=== PATIENT | female | born 1965 | race Caucasian/White ===

== ENCOUNTER 2022-02-20 11:04 | Outpatient (REF) | payer BC, SELFPAY ==
--- NOTE | 2022-02-20 09:00 | PAPFT_PTH ---
PATIENT: Lynda Vázquez LOC: [facility]#:[id number] AGE/SX: 56/F ROOM: RE02/20/[address]: Nicole Mayer : 1965 BED: DIS: 02/20/2022 SPEC #: [id number] RECD: 02/20/22 17:49 STATUS: LETTY REMilton #: [id number] JAHAIRA: 02/20/22 09:[address]: Nicole Mayer [facility] Cytology RECD BY: Justina Mckee ENTERED: 02/20/22 17:50 SP TYPE: PAPFT FRED DR: Piyush Warner Tissues: 1 - CX/ENDOCX FOR PAP SMEARS Procedures: PAP THIN PREP/UVM Screening HPV DNA PROBE Comments: [id number]
[2022-02-20 15:59] LABS: Calculated LDL 136 mg/dL (<100); Cholesterol 215 mg/dL (<200); HDL Cholesterol 58 mg/dL (40-60); Triglyceride 108 mg/dL (<150)
== END 2022-02-20 11:05 | disposition home or self-care (01) ==
LOC: NCHCN 11:04
PROVIDERS: PCP Specialist/Technologist Athletic Trainer; Visit Provider Nurse Practitioner Family
DX: Z00.00 Encounter for general adult medical examination without abnormal findings (principal); Z12.4 Encounter for screening for malignant neoplasm of cervix; Z13.220 Encounter for screening for lipoid disorders; Z11.51 Encounter for screening for human papillomavirus (HPV); Z01.419 Encounter for gynecological examination (general) (routine) without abnormal findings
CPT/HCPCS: 80061; 88142; 87624

== ENCOUNTER 2022-06-20 01:45 | Outpatient (CLI) | payer BC, SELFPAY ==
--- NOTE | 2022-06-20 07:56 | DI.MAMMO_ITS ---
Exam(s) MAMMO SCREENING EXAM: MAMMO SCREENING CLINICAL HISTORY: SCREENING, Z12.39 TECHNIQUE: Bilateral full field digital CC and MLO mammographic images were obtained with 3D tomosyn thesis and utilizing computer aided detection (CAD). COMPARISON: Available for comparison. FINDINGS: Masses/Architectural Distortion: None seen. Microcalcifications: No suspicious pleomorphic-type are seen. Skin Thickening/Nipple Retraction: None. IMPRESSION: 1. No significant interval change with no specific features of malignancy noted. 2. Unless there is more urgent need, screening mammography is recommended, as per [place] [employer] guidelines. BI-RADS Category 1 - Negative Breast Density - Category B - Scattered areas of fibroglandular density Breast density category C or D implies that the patient has dense breast tissue. Dense breast tissue is very common and is not abnormal but dense breast tissue can make it harder to find cancer on a ma mmogram. Also, dense breast tissue may increase their breast cancer risk. This information about the result of the mammogram report was provided to the patient to raise their awareness. Use this report when you speak with the patient about their risks for breast cancer, which includes their family hist ory. At that time, you may recommend for more screening tests (Ultrasound or MRI) as they might be us eful based on their risk. A negative radiographic report should not delay biopsy if a dominant or clinically suspicious mass is present. Up to ten percent of cancers are not identified on mammography. A negative report may reinforce clinical impression. Adenosis and dense breasts may obscure an underlying neoplasm. False positive reports average 6 to 10%. Patient will receive a letter notifying them of these results.
== END 2022-06-20 02:05 ==
PROVIDERS: PCP Specialist/Technologist Athletic Trainer; Visit Provider Nurse Practitioner Family
DX: Z12.31 Encounter for screening mammogram for malignant neoplasm of breast (principal)
CPT/HCPCS: 77063; 77067

== ENCOUNTER 2024-05-01 08:32 | Outpatient (REF) | payer BC, SELFPAY ==
--- OUTSIDE RECORDS SUMMARY | 2024-05-01 08:34 | XMS_ITS | Encounter Summary ---
Author Organization [facility] Address [address] [place] [address] Care Team Providers Care Ferryboat Helper Name Role Phone Unavailable Primary Care Provider Unavailabl e Encounter Details Date Type Department Care Team (Late st Contact Info) Description 12/29/2005 Results Only [facility] [place] [facility] [address] [place] [address] Hector Malagon MD [address] [facility] [address] [place] [address] Social History Tobacco Use Types Packs/Day Years Used Date Smoking Tobacco: Never Assessed Comments Unknown Sex and Gender Information Value Date Recorded Sex Assigned at Not on file Legal Sex Female 18:12 EST Gender Identity Not on file Sexual Orientation Not on file documented as of this encounter Plan of Treatment Not on file documented as of this encounter Procedures Procedure Name Priority Date/Time Associated Diagnosis Comments CYTOPATHOLOGY Routine 12/29/2005 0:00 EDT documented in this encounter Results * CYTOPATHOLOGY (12/29/2005 0:00 EDT) Pathology Report: CYTOPATHOLOGY REPORT Reports generated via electronic interface contain original data; however they are lacking the format of the original report. Caution should be taken when reading/interpreti ng unformatted reports. Name: ? MIRA VÁZQUEZ ? Accession #: ? [id number] : ? 1965 (Age: 40) ??F ?Collect Date: ? 12/29/2005 Location: ? [facility] ? Receive Date: ? 01/01/2006 Provider: ?HECTOR MALAGON MD Copy to: ? Specimen/Source: ?ThinPrep Pap Test, Cervix/Endocervix, processed on [employer] Please ThinPrep Imaging System, with manual evaluation Last Menstrual Period: ? 12/09/05 ? SPECIMEN ADEQUACY ? Satisfactory for Evaluation - transformation zone component present GENERAL CATEGORIZATION ? Negative for Intraepithelial Lesion or Malignancy ? Document reviewed and electronically signed by: ? KEI Echevarria(ASCP) ? Report Date: ??01/03/2006 09:39 End of Report [facility] 12/29/2005 01/01/2006 us Hector Malagon MD PATHOLOGY ORDERABLES Final Resu lt [facility] [address] [place] [address] documented in this encounter Visit Diagnoses Not on filedocumented in this encounter
--- OUTSIDE RECORDS SUMMARY | 2024-05-01 08:34 | XMS_ITS | Clinical Summary ---
Author Organization [facility] Address [address] [place] [address] Care Team Providers Care Weld Engineer Name Role Phone Piyush Warner PA-C Primary Care Provider [phone] Social History Tobacco Use Types Packs/Day Years Used Date Smoking Tobacco: Never Assessed Interpersonal Safety Answer Date Record ed Physically Hurt Never 01/11/2020 Verbally Threaten Not on file 01/11/2020 Comments Unknown Sex and Gender Information Value Date Recorded Sex Assigned at Not on file Legal Sex Female 18:12 EST Gender Identity Not on file Sexual Orientation Not on file Plan of Treatment Health Maintenance Due Date Last Done Comments Hepatitis C Screen 1965 COVID-19 Vaccine ( season) 2024 RSV Immunization ( o r 60+ Years) (1 - 1-dose 75+ series) 11/05/2038 Care Teams Weld Engineer Relationship Specialty Start Date End Date Piyush Warner PA-C PCP - General 07/13/17
--- OUTSIDE RECORDS SUMMARY | 2024-05-01 08:34 | XMS_ITS | Encounter Summary ---
Author Organization [facility] Address [address] [place] [address] Care Team Providers Care Rail Engineer Name Role Phone Unavailable Primary Care Provider Unavailabl e Encounter Details Date Type Department Care Team (Late st Contact Info) Description 12/11/2003 Results Only [facility] [place] conversion [address] [place] [address] Hector Malagon MD [address] [facility] [facility] [facility] [address] [place] [address] Social History Tobacco Use Types [...] Priority Date/Time Associated Diagnosis Comments CYTOPATHOLOGY Routine 12/11/2003 0:00 EDT documented in this encounter Results * CYTOPATHOLOGY (12/11/2003 0:00 EDT) Pathology Report: CYTOPATHOLOGY REPORT Reports generated via electronic interface contain original data; however they are lacking the format of the original report. Caution should be taken when reading/interpreti ng unformatted reports. Name: ? MIRA VÁZQUEZ ? Accession #: ? [id number] : ? 1965 (Age: 38) ??F ?Collect Date: ? 12/11/2003 Location: ? [facility] ? Receive Date: ? 12/16/2003 Provider: ?HECTOR MALAGON MD Copy to: ? Specimen/Source: ?ThinPrep Pap Test, Cervix/Endocervix Last Menstrual Period: ? 11/09/2003 Menstrual/Pregnanc y Status: ? Post ? SPECIMEN ADEQUACY ? Satisfactory for Evaluation - transformation zone component present GENERAL CATEGORIZATION ? Negative for Intraepithelial Lesion or Malignancy ? Document reviewed and electronically signed by: ? Imelda Person, CT(ASCP)(IAC) ? Report Date: ??12/22/2003 11:27 End of Report [facility] 12/11/2003 12/16/2003 us Hector Malagon MD PATHOLOGY ORDERABLES Final Resu lt [facility] [address] [place] [address] documented in this encounter Visit Diagnoses Not on filedocumented in this encounter
--- OUTSIDE RECORDS SUMMARY | 2024-05-01 08:34 | XMS_ITS | Encounter Summary ---
Author Organization [facility] Address [address] [place] [address] Care Team Providers Care Silver Spray Worker Name Role Phone Unavailable Primary Care Provider Unavailabl e Encounter Details Date Type Department Care Team (Late st Contact Info) Description 02/21/2000 Results Only [facility] [place] conversion [address] [place] [address] Hector Malagon MD [address] [facility] [address] [place] [address] Social History Tobacco Use Types [...] Priority Date/Time Associated Diagnosis Comments CYTOPATHOLOGY Routine 02/21/2000 0:00 EDT documented in this encounter Results * CYTOPATHOLOGY (02/21/2000 0:00 EDT) Pathology Report: CYTOPATHOLOGY REPORT Reports generated via electronic interface contain original data; however they are lacking the format of the original report. Caution should be taken when reading/interpreti ng unformatted reports. Name: ? MIRA VÁZQUEZ ? Accession #: ? [id number] : ? 1965 (Age: 34) ??F ?Collect Date: ? 02/21/2000 Location: ? [facility] ? Receive Date: ? 02/24/2000 Provider: ?HECTOR MALAGON MD Copy to: ? Specimen/Source: ?Conventional Pap Test, Cervix/Endocervix Last Menstrual Period: ? Menstrual/Pregnanc y Status: ? Other: ? Additional clinical information: amenorrhea ? SPECIMEN ADEQUACY ? Satisfactory for evaluation. GENERAL CATEGORIZATION ? Within Normal Limits ? Document reviewed and electronically signed by: ? KEI Echevarria(ASCP) ? Report Date: ??02/24/2000 13:26 End of Report [facility] 02/21/2000 02/24/2000 us Hector Malagon MD PATHOLOGY ORDERABLES Final Resu lt [facility] [address] [place] [address] documented in this encounter Visit Diagnoses Not on filedocumented in this encounter
--- OUTSIDE RECORDS SUMMARY | 2024-05-01 08:34 | XMS_ITS | Encounter Summary ---
Author Organization [facility] Address [address] [place] [address] Care Team Providers Care Clinical Science Liaison Name Role Phone Unavailable Primary Care Provider Unavailabl e Encounter Details Date Type Department Care Team (Late st Contact Info) Description 02/27/2007 Results Only [facility] [place] [facility] [address] [place] [address] Sindhu Leslie, EZRA Social History Tobacco Use Types Packs/Day Years [...] Priority Date/Time Associated Diagnosis Comments CYTOPATHOLOGY Routine 02/27/2007 0:00 EDT documented in this encounter Results * CYTOPATHOLOGY (02/27/2007 0:00 EDT) Pathology Report: CYTOPATHOLOGY REPORT Reports generated via electronic interface contain original data; however they are lacking the format of the original report. Caution should be taken when reading/interpreti ng unformatted reports. Name: ? MIRA VÁZQUEZ ? Accession #: ? [id number] : ? 1965 (Age: 41) ??F ?Collect Date: ? 02/27/2007 Location: ? [facility] ? Receive Date: ? 02/28/2007 Provider: ?SINDHU LESLIE SECOND TIME WORKER Copy to: ? Specimen/Source: ?ThinPrep Pap Test, Cervix/Endocervix, processed on [employer] ThinPrep Imaging System, with manual evaluation Last Menstrual Period: ? 02/08/07 Other: ? HPVA - HPV testing requested if ASC-US on the current ThinPrep Pap test. ? SPECIMEN ADEQUACY ? Satisfactory for Evaluation - transformation zone component present GENERAL CATEGORIZATION ? Negative for Intraepithelial Lesion or Malignancy ? Document reviewed and electronically signed by: ? KEI Felder(ASCP) ? Report Date: ??03/05/2007 14:28 End of Report [facility] 02/27/2007 02/28/2007 us Sindhu Leslie NP PATHOLOGY ORDERABLES Final Re sult [facility] [address] [place] [address] documented in this encounter Visit Diagnoses Not on filedocumented in this encounter
--- OUTSIDE RECORDS SUMMARY | 2024-05-01 08:34 | XMS_ITS | Encounter Summary ---
Author Organization [facility] Address [address] [place] [address] Care Team Providers Care Banana Room Cutter Name Role Phone Unknown, Provider Primary Care Provider Unava ilable Encounter Details Date Type Department Care Team (Late st Contact Info) Description 04/20/2017 Results Only [facility] [phone] Guadalupe Todd MD [address] [place] [address] [place] [address] Social History Tobacco Use Types Packs/Day Years [...] Procedure Name Priority Date/Time Associated Diagnosis Comments PAP TEST- RESULT ONLY Routine 04/20/2017 0:00 EST documented in this encounter Results * PAP TEST- RESULT ONLY (04/20/2017 0:00 EST) Pathology Report: CYTOPATHOLOGY REPORT Reports generated via electronic interface contain original data; however they are lacking the format of the original report. Caution should be taken when reading/interpreti ng unformatted reports. Name: ? MIRA VÁZQUEZ ? Accession #: ? [id number] ? : ? 1965 (Age: 51) ??F ?Collect Date: ? 04/20/2017 ? Location: ? [facility] ? Receive Date: ? 04/23/2017 ? Provider: GUADALUPE TODD MD Copy to: MANSOOR LEON PAC ? Final Report SPECIMEN ADEQUACY ? Satisfactory for Evaluation - transformation zone component present GENERAL CATEGORIZATION ? Negative for Intraepithelial Lesion or Malignancy ?? Specimen/Source: ??Pap Test, Cervix, ThinPrep Imaging System with manual evaluation Document reviewed and electronically signed by: ? Blanca Estrada, [facility](ASCP) ? Report ??Date: 05/04/2017 10:01 HPV with Pap Test ? Date Ordered: ? 05/04/2017 ? Status: ?? Signed Out ?Date Complete: ? 05/07/2017 ? By: ??System Interface ? Date Reported: ? 05/07/2017 ? Interpretation RESULT: Negative for HPV. No E6 or E7 mRNA is detected from HPV types 16,18,31,33,35, 39,45,51,52,56,58, 59,66, and 68 by antique refinisher mediated amplification. Comments Document reviewed and electronically signed by: ? System Interface ? Report date: 05/07/2017 By the signature above, the attending physician certifies that he/she has personally conducted a gross and/or microscopic examination of the described specimens and rendered or confirmed the above diagnosis. End of Report [facility] 04/20/2017 04/23/2017 us Guadalupe Todd MD PATHOLOGY ORDERABLES Final Resu lt Performing Organization Address City/State/[facility] Co de Phone Number [facility] [address] [place] [address] documented in this encounter Visit Diagnoses Not on filedocumented in this encounter Care Teams Banana Room Cutter Relationship Specialty Start Date End Date Unknown, Provider, PCP - General 04/16/15 07/12/17 documented as of this encounter
--- OUTSIDE RECORDS SUMMARY | 2024-05-01 08:34 | XMS_ITS | Encounter Summary ---
Author Organization [facility] Address [address] [place] [address] Care Team Providers Care Internal Medicine Hospitalist Name Role Phone Unavailable Primary Care Provider Unavailabl e Encounter Details Date Type Department Care Team (Late st Contact Info) Description 12/19/2004 Results Only [facility] [place] conversion [address] [place] [address] Hector Malagon MD [address] [address] [place] [address] Social History Tobacco Use Types [...] Priority Date/Time Associated Diagnosis Comments CYTOPATHOLOGY Routine 12/19/2004 0:00 EDT documented in this encounter Results * CYTOPATHOLOGY (12/19/2004 0:00 EDT) Pathology Report: CYTOPATHOLOGY REPORT Reports generated via electronic interface contain original data; however they are lacking the format of the original report. Caution should be taken when reading/interpreti ng unformatted reports. Name: ? MIRA VÁZQUEZ ? Accession #: ? [id number] : ? 1965 (Age: 39) ??F ?Collect Date: ? 12/19/2004 Location: ? [facility] ? Receive Date: ? 12/21/2004 Provider: ?HECTOR MALAGON MD Copy to: ? Specimen/Source: ?ThinPrep Pap Test, Cervix/Endocervix, processed on [employer] ThinPrep Imaging System, with manual evaluation Last Menstrual Period: ? 11/26/04 ? SPECIMEN ADEQUACY ? Satisfactory for Evaluation - transformation zone component present GENERAL CATEGORIZATION ? Negative for Intraepithelial Lesion or Malignancy ? Document reviewed and electronically signed by: ? KEI Herrera(ASCP) ? Report Date: ??12/29/2004 12:51 End of Report [facility] 12/19/2004 12/21/2004 us Hector Malagon MD PATHOLOGY ORDERABLES Final Resu lt [facility] [address] [place] [address] documented in this encounter Visit Diagnoses Not on filedocumented in this encounter
--- OUTSIDE RECORDS SUMMARY | 2024-05-01 08:34 | XMS_ITS | Referral Summary ---
Author Organization [facility] Address [address] [place] [address] Care Team Providers Care Cloth Tearer Name Role Phone Piyush Warner PA-C Primary Care Provider [phone] Social History Tobacco Use Types Packs/Day Years Used Date Smoking Tobacco: Never Assessed Interpersonal Safety Answer Date Record ed Physically Hurt Never 01/11/2020 Verbally Threaten Not on file 01/11/2020 Comments Unknown Sex and Gender Information Value Date Recorded Sex Assigned at Not on file Legal Sex Female 18:12 EST Gender Identity Not on file Sexual Orientation Not on file Plan of Treatment Not on file Care Teams Cloth Tearer Relationship Specialty Start Date End Date Piyush Warner PA-C PCP - General 07/13/17
--- OUTSIDE RECORDS SUMMARY | 2024-05-01 08:34 | XMS_ITS | Encounter Summary ---
Author Organization [facility] Address [address] [place] [address] Care Team Providers Care Senior Software Development Engineer Name Role Phone Unavailable Primary Care Provider Unavailabl e Encounter Details Date Type Department Care Team (Late st Contact Info) Description 04/22/2008 Before PRISM Converted Visit ([place]) [facility] [place] [facility] [place] conversion [address] [place] [address] Sindhu Leslie, EZRA Social History Tobacco Use [...] Procedure Name Priority Date/Time Associated Diagnosis Comments HPV DETECTION, HIGH RISK TYPES Routine 04/22/2008 15:13 EST CYTOPATHOLOGY Routine 04/22/2008 0:00 EST documented in this encounter Results * HUMAN PAPILLOMA VIRUS DNA TEST (04/22/2008 15:13 EST) Specimen Description Cervix, ThinPrep vial [facility] Result Negative for HPV types 16, 18, 31, 33, 35, 39, 45, 51, 52, 56, 58, 59, and 68. [facility] Report Status Final 05/05/2008 [facility] 04/22/2008 15:1 3 EST 04/28/2008 15:13 EST us Sindhu Leslie NP MICROBIOLOGY - GENERAL ORDERA BLES Final Result [facility] [address] [place] [address] * CYTOPATHOLOGY (04/22/2008 0:00 EST) Pathology Report: CYTOPATHOLOGY REPORT ? Reports generated via electronic interface contain original data; ? however they are lacking the format of the original report. ? Caution should be taken when reading/interpreti ng unformatted reports. ? Name: ? MIRA VÁZQUEZ ? Accession #: ? [id number] ? : ? 1965 (Age: 42) ??F ?Collect Date: ? 04/22/2008 ? Location: ? [facility] ? Receive Date: ? 04/23/2008 ? Provider: ?SINDHU M TYREE JUDGE'S CLERK ? Copy to: ? Specimen/Source: ?Pap Test, Cervix/Endocervix, ThinPrep Imaging System ? with manual evaluation ? Last Menstrual Period: ? 11/2/08 ? Other: ? HPVDX - HPV testing requested regardless of diagnosis on current ThinPrep Pap ?? test. ? SPECIMEN ADEQUACY ? Satisfactory for Evaluation ? - transformation zone component present ? - scant squamous epithelial component secondary to excessive mucus ? GENERAL CATEGORIZATION ? Negative for Intraepithelial Lesion or Malignancy ? Document reviewed and electronically signed by: ? Karyn Huddleston. Jacquelyn, SCT(ASCP) ? Report Date: ??04/28/2008 10:04 ? End of Report ? [facility] 04/22/2008 04/23/2008 us Sindhu Leslie JUDGE'S CLERK PATHOLOGY ORDERABLES Final Re sult [facility] [address] [place] [address] documented in this encounter Visit Diagnoses Not on filedocumented in this encounter
--- OUTSIDE RECORDS SUMMARY | 2024-05-01 08:34 | XMS_ITS | Encounter Summary ---
Author Organization [facility] Address [address] [place] [address] Care Team Providers Care Tetryl Wringer Operator Name Role Phone Piyush Warner PA-C Primary Care Provider [phone] [phone] Encounter Details Date Type Department Care Team (Latest Contact Info) Description 02/22/2022 Lab Requisition [facility] Medicine - [facility] [address] [place] [address] Nicole Mayer, CEPHALOMETRIC TECHNICIAN [address] [facility] [address] [place] [phone] Encounter for general adult medical examination without abnormal findings; Encounter for gynecological examination (general) (routine) without abnormal findings; Encounter for screening for malignant neoplasm of cervix Social History Tobacco Use Types Packs/Day Years [...] Name Priority Date/Time Associated Diagnosis Comments PAP TEST Today 02/20/2022 9:00 EDT Encounter for general adult medical examination without abnormal findings Encounter for gynecological examination (general) (routine) without abnormal findings Encounter for screening for malignant neoplasm of cervix HPV DNA DETECTION WITH GENOTYPING, PCR Today 02/20/2022 9:00 EDT Encounter for general adult medical examination without abnormal findings Encounter for gynecological examination (general) (routine) without abnormal findings Encounter for screening for malignant neoplasm of cervix documented in this encounter Results * HUMAN PAPILLOMAVIRUS (HPV) DETECTION-HIGH RISK TYPES (02/20/2022 9:00 EDT) HPV other High Risk types, PCR Negative Negative 02/27/2022 15:15 EDT [facility] Comment:No E6 or E7 mRNA is detected from HPV types 16,18,31,33,35,39,45,51,52,56,58,59,66, and 68 by cathead operator mediated amplification. Papanicolaou smear specimen (specimen) CERVIX UTERI STRUCTURE / Unknown 02/20/2022 9:00 EDT 02/24/2022 14:43 EDT us Nicole Mayer CEPHALOMETRIC TECHNICIAN MICROBIOLOGY - GENERAL OR DERABLES Final Result [facility] [address] [place] [id number] * PAP TEST (02/20/2022 9:00 EDT) Specimens A. Cervix and/or Endocervix , ThinPrep Imaging System with Manual Evaluation 02/27/2022 15:15 [facility] Specimen Adequacy Satisfactory for Evaluation - assessment of transformation zone component not applicable ( e.g. atrophy, vaginal sample, hysterectomy) 02/27/2022 15:15 T [facility] General Categorization Negative for intraepithelial lesion or malignancy 02/27/2022 15:15 [facility] Attestation . 02/27/2022 15:15 [facility] at 1515 Clinical History See below 02/28/20 15:15 [facility] HPV The result for the Human Papillomavirus (HPV) Detection-High Risk Types is Negative. No E6 or E7 mRNA is detected from HPV types 16,18,31,33,35,39 ,45,51,52,56,58,5 9,66, and 68 by cathead operator mediated amplification.Sayra ting was performed on specimen [id number] and was resulted on 02/27/2022 1513 EDT by SARA, LAB INSTRUMENT RESULTS IN 02/27/2022 15:15 EDT [facility] Performing Lab [facility] 02/27/2022 15:15 EDT [facility] Scanned Images 02/27/2022 15:15 EDT [facility] Papanicolaou smear specimen (specimen) CERVIX UTERI STRUCTURE / Unknown 02/20/2022 9:00 EDT 02/22/2022 15:07 EDT us Nicole Mayer CEPHALOMETRIC TECHNICIAN PATHOLOGY ORDERABLES Iris soto Result [facility] [address] [place] [address] documented in this encounter Visit Diagnoses Diagnosis Encounter for general adult medical examination without abnormal findings Unspecified general medical examination Encounter for gynecological examination (general) (routine) without abnormal findings Encounter for screening for malignant neoplasm of cervix Screening for malignant neoplasm of the cervix documented in this encounter Care Teams Tetryl Wringer Operator Relationship Specialty Start Date End Date Piyush Warner PA-C PCP - General 07/13/17 documented as of this encounter
--- OUTSIDE RECORDS SUMMARY | 2024-05-01 08:34 | XMS_ITS | Encounter Summary ---
Author Organization [facility] Address [address] [place] [address] Care Team Providers Care Flamer Sealer Name Role Phone Unavailable Primary Care Provider Unavailabl e Encounter Details Date Type Department Care Team (Late st Contact Info) Description 06/02/2002 Results Only [facility] [place] conversion [address] [place] [address] Hector Malagon MD [address] [place] [address] Social History Tobacco Use Types [...] Priority Date/Time Associated Diagnosis Comments CYTOPATHOLOGY Routine 06/02/2002 0:00 EST documented in this encounter Results * CYTOPATHOLOGY (06/02/2002 0:00 EST) Pathology Report: CYTOPATHOLOGY REPORT Reports generated via electronic interface contain original data; however they are lacking the format of the original report. Caution should be taken when reading/interpreti ng unformatted reports. Name: ? MIRA VÁZQUEZ ? Accession #: ? [id number] : ? 1965 (Age: 36) ??F ?Collect Date: ? 06/02/2002 Location: ? [facility] ? Receive Date: ? 06/06/2002 Provider: ?HECTOR MALAGON MD Copy to: ? Specimen/Source: ?Conventional Pap Test, Cervix/Endocervix Last Menstrual Period: ? 05/18/02 ? SPECIMEN ADEQUACY ? Satisfactory for Evaluation - transformation zone component present GENERAL CATEGORIZATION ? Negative for Intraepithelial Lesion or Malignancy ? Document reviewed and electronically signed by: ? Imelda Person, CT(ASCP)(IAC) ? Report Date: ??06/10/2002 13:10 End of Report [facility] 06/02/2002 06/06/2002 us Hector Malagon MD PATHOLOGY ORDERABLES Final Resu lt [facility] [address] [place] [address] documented in this encounter Visit Diagnoses Not on filedocumented in this encounter
--- OUTSIDE RECORDS SUMMARY | 2024-05-01 08:34 | XMS_ITS | Encounter Summary ---
Author Organization [facility] Address [address] [place] [address] Care Team Providers Care Field Care Manager Name Role Phone Unknown, Provider Primary Care Provider Unava ilable Encounter Details Date Type Department Care Team (Latest Contact Info) Description 07/09/2017 10:33 EST - 07/09/2017 23:59 EST Hospital Encounter [address] [address] Unknown, ProviderMD Discharge Disposition: Auto Discharge Social History Tobacco Use Types Packs/Day Years Used Date Smoking Tobacco: Never Assessed Comments Unknown Sex and Gender Information Value Date Recorded Sex Assigned at Not on file Legal Sex Female 18:12 EST Gender Identity Not on file Sexual Orientation Not on file documented as of this encounter Discharge Disposition Disposition Code Departure Means Destination Auto Discharge Home documented in this encounter Plan of Treatment Not on file documented as of this encounter Visit Diagnoses Not on filedocumented in this encounter Care Teams Field Care Manager Relationship Specialty Start Date End Date Unknown, ProviderMD PCP - General 04/16/15 07/12/17 documented as of this encounter
--- OUTSIDE RECORDS SUMMARY | 2024-05-01 08:34 | XMS_ITS | Encounter Summary ---
Author Organization [facility] Address [address] [place] [address] Care Team Providers Care Electronics System Mechanic Name Role Phone Unavailable Primary Care Provider Unavailabl e Encounter Details Date Type Department Care Team (Late st Contact Info) Description 05/28/2001 Results Only [facility] [place] conversion [address] [place] [address] Hector Malagon MD [address] [place] [address] Social History Tobacco Use Types [...] Priority Date/Time Associated Diagnosis Comments CYTOPATHOLOGY Routine 05/28/2001 0:00 EST documented in this encounter Results * CYTOPATHOLOGY (05/28/2001 0:00 EST) Pathology Report: CYTOPATHOLOGY REPORT Reports generated via electronic interface contain original data; however they are lacking the format of the original report. Caution should be taken when reading/interpreti ng unformatted reports. Name: ? MIRA VÁZQUEZ ? Accession #: ? [id number] : ? 1965 (Age: 35) ??F ?Collect Date: ? 05/28/2001 Location: ? [facility] ? Receive Date: ? 05/31/2001 Provider: ?HECTOR MALAGON MD Copy to: ? Specimen/Source: ?Conventional Pap Test, Cervix/Endocervix Last Menstrual Period: ? 05/05/01 Menstrual/Pregnanc y Status: ? Regular ? SPECIMEN ADEQUACY ? Satisfactory for evaluation. GENERAL CATEGORIZATION ? Within Normal Limits ? Document reviewed and electronically signed by: ? GWENDOLYN Seay(ASCP) ? Report Date: ??06/06/2001 11:09 End of Report [facility] 05/28/2001 05/31/2001 us Hector Malagon MD PATHOLOGY ORDERABLES Final Resu lt [facility] [address] [place] [address] documented in this encounter Visit Diagnoses Not on filedocumented in this encounter
--- OUTSIDE RECORDS SUMMARY | 2024-05-01 08:34 | XMS_ITS | Encounter Summary ---
Author Organization [facility] Address [address] [place] [address] Care Team Providers Care Air Chief Marshal Name Role Phone Unknown, Provider Primary Care Provider Unava ilable Encounter Details Date Type Department Care Team (Late st Contact Info) Description 07/09/2017 Results Only [facility] [phone] Solange Swanson MD [facility] [facility] [facility] [address] [place], [place] [id number] Social History Tobacco Use Types Packs/Day Years [...] Procedure Name Priority Date/Time Associated Diagnosis Comments SURGICAL PATHOLOGY Routine 07/09/2017 15 :44 EST documented in this encounter Results * SURGICAL PATHOLOGY (07/09/2017 15:44 EST) Pathology Report: SURGICAL PATHOLOGY REPORT Reports generated via electronic interface contain original data; however they are lacking the format of the original report. Caution should be taken when reading/interpret ing unformatted reports. Name: ? MIRA VÁZQUEZ ? Accession #: ? [id number] ? : ? 1965 (Age: 51) ??F ? Collect Date: ? 07/09/2017 ? Location: ? [facility] ? Receive Date: ? 07/09/2017 ? Provider: SOLANGE SWANSON MD Copy to: MANSOOR LEON PAC ? Final Pathologic Diagnosis: RECTUM, POLYP, BIOPSY: - Superficial fragments of hyperplastic colonic mucosa. Document reviewed and electronically signed by: JU RASMUSSEN MD Report ??Date: 07/10/2017 19:46 By the signature above, the attending physician certifies that he/she has personally conducted a gross and/or microscopic examination of the described specimens and rendered or confirmed the above diagnosis. Specimen(s) Received: Rectal polyp Clinical History: Colorectal screening Gross Description: ? Received in formalin labelled with proper patient identification (initials P, M) and rectal polyp is a single pink-rangel tissue fragment (0.2 x 0.2 x 0.2 cm). Submitted intact in 1. LENNOX Tinoco (ASCP) 07/09/2017 3:53 PM End of Report [facility] 07/09/2017 15:4 4 EST 07/09/2017 15:44 EST us Solange Swanson MD PATHOLOGY ORDERABLES Fin al Result [facility] [address] [place] [address] documented in this encounter Visit Diagnoses Not on filedocumented in this encounter Care Teams Air Chief Marshal Relationship Specialty Start Date End Date Unknown, Provider, PCP - General 04/16/15 07/12/17 documented as of this encounter
--- OUTSIDE RECORDS SUMMARY | 2024-05-01 08:34 | XMS_ITS | Encounter Summary ---
Author Organization [facility] Address [address] [place] [address] Care Team Providers Care Auto Accessories Installer Name Role Phone Unavailable Primary Care Provider Unavailabl e Encounter Details Date Type Department Care Team (Late st Contact Info) Description 02/04/[address] [facility] [place] [address] [place] [phone] Sindhu Leslie, EZRA Social History Tobacco Use [...] Diagnosis Comments PAP TEST- RESULT ONLY Routine 02/04/2014 0:00 EDT documented in this encounter Results * PAP TEST- RESULT ONLY (02/04/2014 0:00 EDT) Pathology Report: CYTOPATHOLOGY REPORT Reports generated via electronic interface contain original data; however they are lacking the format of the original report. Caution should be taken when reading/interpreti ng unformatted reports. Name: ? MIRA VÁZQUEZ ? Accession #: ? [id number] ? : ? 1965 (Age: 48) ??F ?Collect Date: ? 02/04/2014 ? Location: ? [facility] ? Receive Date: ? 02/05/2014 ? Provider: SINDHU LESLIE NP Copy to: SENIA WEISS FAST FOOD SHIFT SUPERVISOR ? Final Report SPECIMEN ADEQUACY ? Satisfactory for Evaluation - transformation zone component present GENERAL CATEGORIZATION ? Negative for Intraepithelial Lesion or Malignancy ?? Last Menstrual Period: 01/2014 Specimen/Source: ??Pap Test, Cervix/Endocervix, ThinPrep Imaging System with manual evaluation Document reviewed and electronically signed by: ? Cindy Lange, CT(ASCP) ? Report ??Date: 02/11/2014 14:56 HPV with Pap Test ? Date Ordered: ? 02/11/2014 ? Status: ?? Signed Out ?Date Complete: ? 02/13/2014 ? By: ??System Interface ? Date Reported: ? 02/13/2014 ? Interpretation RESULT: Negative for HPV. No E6 or E7 mRNA is detected from HPV types 16,18,31,33,35, 39,45,51,52,56,58, 59,66, and 68 by bleach tester mediated amplification. Comments Document reviewed and electronically signed by: ? System Interface ? Report date: 02/13/2014 By the signature above, the attending physician certifies that he/she has personally conducted a gross and/or microscopic examination of the described specimens and rendered or confirmed the above diagnosis. End of Report [facility] 02/04/2014 02/05/2014 us Sindhu Leslie NP PATHOLOGY ORDERABLES Final Re sult [facility] [address] [place] [address] documented in this encounter Visit Diagnoses Not on filedocumented in this encounter
--- OUTSIDE RECORDS SUMMARY | 2024-05-01 08:34 | XMS_ITS | Encounter Summary ---
Author Organization [facility] Address [address] [place] [address] Care Team Providers Care Military Technology Specialist Name Role Phone Unavailable Primary Care Provider Unavailabl e Encounter Details Date Type Department Care Team (Late st Contact Info) Description 11/14/1999 Results Only [facility] conversion [address] [place] [address] Hector Malagon MD [address] [facility] [address] [place] [address] Social History Tobacco Use Types [...] Date/Time Associated Diagnosis Comments SURGICAL PATHOLOGY Routine 11/14/1999 0:00 EDT documented in this encounter Results * SURGICAL PATHOLOGY (11/14/1999 0:00 EDT) Pathology Report: SURGICAL PATHOLOGY REPORT Reports generated via electronic interface contain original data; however they are lacking the format of the original report. Caution should be taken when reading/interpreti ng unformatted reports. Name: ? MIRA VÁZQUEZ ? Accession #: ? [id number] ? : ? 1965 (Age: 34) ??F ? Collect Date: ? 11/14/1999 ? Location: ? [facility] ? Receive Date: ? 11/14/1999 ? Provider: HECTOR MALAGON MD Copy to: JO AMOS MD ? Final Pathologic Diagnosis: ? Endometrium, biopsy: 1. ?Gestational endometrium and decidua. 2. ?No chorionic villi or trophoblastic tissue is identified. ??See comment. Comment: ? This case was discussed by phone with Dr. Malagon on November 15, 1999 at 10 o' clock a.m. ??(Dr. Griffiths)/[facility] Document reviewed and electronically signed by: LAURE DIAZ MD Report ??Date: 11/15/1999 17:16 By the signature above, the attending physician certifies that he/she has personally conducted a gross and/or microscopic examination of the described specimens and rendered or confirmed the above diagnosis. Specimen(s) Received: ? Endometrial bx Clinical History: ? Irreg bleeding, (+) HCG, R/O ectopic, please check for villi Gross Description: ? Received in formalin labelled Hume and endometrium are multiple fragments of red-brown mucinous hemorrhagic tissue which measures 2.0 x 1.5 x 1.0 cm in aggregate and are submitted entirely as (A1) through (A3). ??(Dr. Griffiths)/[facility] End of Report [facility] 11/14/1999 11/14/1999 16: 09 EDT us Hector Malagon MD PATHOLOGY ORDERABLES Final Resu lt [facility] [address] [place] [address] documented in this encounter Visit Diagnoses Not on filedocumented in this encounter
[2024-05-01 15:10] LABS: Bilirubin Negative (Negative); Blood Negative (Negative); Clarity Clear (Clear); Glucose Negative (Negative); Ketones Negative (Negative); Leukocyte Esterase Trace (Negative); Nitrite Negative (Negative); Urobilinogen 0.2 mg/dL (Up to 0.2)
[2024-05-01 15:18] LABS: Bacteria Negative HPF (Negative); C & S Indicated? No; Casts Negative LPF (Negative); Crystals Negative HPF (Negative); Epithelial Cells Rare HPF (Negative); Mucus Negative (Negative); RBC Negative HPF (0-2); WBC 0-2 HPF (0-5)
[2024-05-01 15:22] LABS: ALT 28 U/L (14-59); AST 22 U/L (15-37); Albumin 4.1 g/dL (3.4-5.0); Alkaline Phosphatase 108 U/L (46-116); Anion Gap 7.8 mmol/L (3-11); BUN 16 mg/dL (7-18); Bilirubin, Total 0.37 mg/dL (0.2-1.0); CO2 29.2 mmol/L (21.0-32.0); CREATININE 0.8 mg/dL (0.55-1.02); Calcium 9.6 mg/dL (8.5-10.1); Calculated LDL 123 mg/dL (<100); Chloride 108 mmol/L (98-107); Cholesterol 199 mg/dL (<200); Glucose 99 mg/dL (74-106); HDL Cholesterol 59 mg/dL (40-60); Potassium 4.7 mmol/L (3.5-5.1); Sodium 145 mmol/L (136-145); Total Protein 7.3 g/dL (6.4-8.2); Triglyceride 88 mg/dL (<150)
[2024-05-01 16:25] LABS: COMMENT (LAB VIEW ONLY) < 13.00 mg/dL
== END 2024-05-01 08:33 | disposition home or self-care (01) ==
LOC: NCHCN 08:32
PROVIDERS: PCP Specialist/Technologist Athletic Trainer; Visit Provider Nurse Practitioner Family
DX: I10 Essential (primary) hypertension (principal)
CPT/HCPCS: 80053; 80061; 81003; 81015; 82043; 82570

== ENCOUNTER 2024-07-18 10:13 | Outpatient (CLI) | payer BC, SELFPAY ==
--- NOTE | 2024-07-18 08:43 | DI.RAD_ITS ---
Exam(s) XR KNEE RT 4V AP,LAT,MAGDIEL,PAT EXAM: XR KNEE RT 4V AP,LAT,MAGDIEL,PAT CLINICAL HISTORY: knee pain. TECHNIQUE: 2D digital imaging was performed. Three views. COMPARISON: CR LEFT KNEE 3 VIEW COMPLETE from 05/26/2015 FINDINGS: BONES: No acute fracture is present. No bony destructive lesion is seen. There is mild deformity of the lateral tibial plateau which could be related to an old fracture versus degenerative spurring. JOINTS: There is severe narrowing of the lateral patellofemoral joint. There is prominent spurring a t the lateral aspect of the patellofemoral joint. There is mild narrowing of the lateral femoral tib ial joint however there is prominent periarticular spurring. The medial femoral tibial joint space s hows mild compensatory widening. No joint effusion is seen. SOFT TISSUE: Normal. IMPRESSION: Degenerative changes, most severe at the lateral patellofemoral joint. DATA REPOSITORY: RADIATION DOSE DELIVERED:
== END 2024-07-18 10:14 | disposition home or self-care (01) ==
LOC: DIORS 10:13
PROVIDERS: PCP Nurse Practitioner Family; Visit Provider Physician Assistant
DX: M25.561 Pain in right knee (principal)
CPT/HCPCS: 73564

== ENCOUNTER 2024-08-07 02:05 | Outpatient (CLI) | payer BC, SELFPAY ==
--- NOTE | 2024-08-07 | DI.MRI_ITS ---
Exam(s) MR LOWER JOINT RT WO EXAM: MR LOWER JOINT RT WO CLINICAL HISTORY: PAIN RT KNEE M25.561. TECHNIQUE: Multiplanar multisequence MRI was performed. COMPARISON: CR XR KNEE RT 4V AP,LAT,MAGDIEL,PAT from 07/18/2024 FINDINGS: BONES: There is depression seen in the central lateral tibial plateau. There is mild marrow edema se en in the posterior aspect of the lateral tibial plateau. The marrow edema lies at the posterior asp ect of the depression and posterior to the depression. JOINTS: There is marked thinning of the articular cartilage of the patellofemoral joint. Mild subcho ndral edema is present. There is thinning of the articular cartilage in both the medial lateral femo ral tibial joints, lateral greater than medial. Osteophytes are seen in the lateral femoral tibial j oint. No effusion is present. TENDONS: Extensor mechanism: Unremarkable. Medial retinaculum: Unremarkable. Lateral retinaculum: Unremarkable. Popliteus: Unremarkable. MUSCLES: Unremarkable. MENISCI: The medial meniscus is unremarkable. The body and posterior horn of the lateral meniscus sh ows decrease in size in contains abnormal signal. This may be due to a tear which is likely degenera tive in nature. SOFT TISSUES: Unremarkable. LIGAMENTS: Anterior Cruciate: Unremarkable. Posterior Cruciate: Unremarkable. Medial Collateral:Unremarkable. Lateral Collateral: Unremarkable. OTHER: IMPRESSION: 1. Decreased size and abnormal signal within the body and posterior horn of the lateral meniscus. Th e findings are consistent with a tear which is likely degenerative in nature. 2. Findings of a prior depressed lateral tibial plateau fracture. There is mild marrow signal diesel powerplant mechanic helper ior to the depression which may be more acute. 3. Osteoarthritis of the knee most marked in the lateral femoral tibial joint. 4. No evidence of a ligament tear. DATA REPOSITORY:
== END 2024-08-07 02:25 ==
LOC: DI 02:06
PROVIDERS: PCP Nurse Practitioner Family; Visit Provider Nurse Practitioner Family
DX: M17.11 Unilateral primary osteoarthritis, right knee (principal)
CPT/HCPCS: 73721

== ENCOUNTER 2024-10-24 01:59 | Outpatient (CLI) | payer BC, SELFPAY ==
[2024-10-24 09:28] LABS: HCT 42.7 % (36.0-46.0); MCH 29.5 pg (27.0-33.0); MCHC 32.8 % (32.0-36.0); MCV 90 fL (80-95); MPV 8.8 fL (8.0-11.0); Platelet Count 341 10^3/uL (130-400); RBC 4.74 10^6/uL (3.93-5.22); RDW 12.7 % (11.7-14.6); RDW-SD 42.3 fL; WBC 6.75 10^3/uL (4.4-10.8)
[2024-10-24 09:46] LABS: Anion Gap 6.9 mmol/L (3-11); BUN 19 mg/dL (7-18); CO2 28.1 mmol/L (21.0-32.0); CREATININE 0.9 mg/dL (0.55-1.02); Calcium 9.6 mg/dL (8.5-10.1); Chloride 105 mmol/L (98-107); Estimated GFR 73.19 (mL/min/1.73m2); Glucose 99 mg/dL (74-106); Sodium 140 mmol/L (136-145)
== END 2024-10-24 02:00 | disposition home or self-care (01) ==
PROVIDERS: PCP Nurse Practitioner Family; Visit Provider Student in an Organized Health Care Education/Training Program
DX: M17.11 Unilateral primary osteoarthritis, right knee (principal); Z01.818 Encounter for other preprocedural examination
CPT/HCPCS: 36415; 80048; 85027

== ENCOUNTER 2024-10-24 09:06 | Outpatient (CLI) | payer BC, SELFPAY ==
--- NOTE | 2024-10-24 08:15 | DI.RAD_ITS ---
Exam(s) XR STANDING ALIGNMENT EXAM: XR STANDING ALIGNMENT CLINICAL HISTORY: PRE OP R TKA. TECHNIQUE: 2D digital imaging was performed. COMPARISON: CR LEFT KNEE 3 VIEW COMPLETE from 05/26/2015 CR XR KNEE RT 4V AP,LAT,MAGDIEL,PAT from 07/18/2024 FINDINGS: 3 views There is again noted significant degenerative narrowing of the lateral compartment of the right knee and medial compartment of the opposite-left knee. The appearance of the lateral compartment of the r ight knee is similar to images of July 2024. The medial compartment of the left knee has progres sed to significant narrowing when compared to the unremarkable appearing images the left knee in Dece er 2014, 10 years ago. Lateral compartment of the left knee again exhibits normal height and there is also relatively maintained height of the medial compartment of the right knee. Hips appear unremarkable. Ankles unremarkable. Bone density. No osseous lesions. IMPRESSION: Significant degenerative changes in the medial compartment of the left knee and lateral compartment o f the right knee, as described above. DATA REPOSITORY: RADIATION DOSE DELIVERED:
== END 2024-10-24 09:07 | disposition home or self-care (01) ==
LOC: DIORS 09:06
PROVIDERS: PCP Nurse Practitioner Family; Visit Provider Physician Assistant
DX: M17.11 Unilateral primary osteoarthritis, right knee (principal)
CPT/HCPCS: 99213; 77073

== ENCOUNTER 2024-11-05 09:44 | Day surgery (SDC) | payer BC, SELFPAY ==
--- NOTE | 2024-11-05 07:29 | PDOC.DSDIS_ITS ---
Date of service: 11/05/24 Discharge Plan Disposition Patient Disposition: Home Condition: Good Discharge Details Reason For Visit: R TKR Attending Provider: Maxi Leon Primary Care Provider: Nicole Mayer Home Meds and New Rx's Prescriptions: New acetaminophen 500 mg tablet 1,000 mg PO TID Qty: 90 3RF aspirin 81 mg tablet,delayed release (DR/EC) 81 mg PO BID Qty: 60 0RF celecoxib 200 mg capsule 200 mg PO BID Qty: 60 0RF dexamethasone 4 mg tablet 4 mg PO DAILY Qty: 2 0RF docusate sodium 100 mg capsule 100 mg PO BID PRNQty: 28 0RF pantoprazole 40 mg tablet,delayed release (DR/EC) 40 mg PO DAILY Qty: 14 0RF gabapentin 300 mg capsule 300 mg PO QHS Qty: 14 0RF oxycodone 5 mg tablet 5 mg PO Q4H PRNQty: 18 0RF Continued metoprolol succinate 25 mg tablet extended release 24 hr 25 mg PO DAILY multivitamin [Daily Multi-Vitamin] 1 EACH tablet 1 ea PO DAILY Patient Comments: Patient states she took this roughly one week ago Discharge Instructions Additional Instructions: Total Knee Discharge Instructions Activity: The most important activity is to walk and to work on gentle motion (both flexion and extension). You should try to take short walks a few times a day. It is important that when resting you work on keeping the knee straight. Avoid putting a pillow behind the knee as this will encourage flexion. Work on range of motion exercises as provided by Physical Therapy. - Start outpatient physical therapy within 2 weeks. - You should wear the NICHOLAS hose on both legs for 2 weeks. You may remove these at night. You may also use any compression sock in place of the NICHOLAS hose. - Utilize [employer] to review exercises, see videos on exercises and obtain basic information pertaining to your surgery and your recovery. Dressing: Remove the Devang wrap by 2 days after your surgery and put on the NICHOLAS stocking given to you from the hospital. Keep the surgical dressing (underneath the DEVANG wrap) in place for at least one week. After the first week it may be removed and replaced with light gauze and tape or nothing. The wound and dressing may get wet after 3 days but avoid soaking the dressing or otherwise it will need to be changed. Many people prefer covering the dressing with cling wrap (saran wrap) to minimize it from getting soaked. If it gets wet, just pat dry. If it starts to peel off then it will need to be changed. Medications: - You should take Tylenol and anti-inflammatory Celebrex as your primary pain control medications. If the Celebrex is too expensive or not covered, please call the office for another alternative (Advil/Ibuprofen or Naproxen/Aleve) - You have been prescribed a stronger pain medication Oxycodone for breakthrough pain, take as needed as prescribed. - You have also been prescribed a stomach acid reduction agent Pantoprozole to help reduce stomach acid and reflux. - You have been prescribed Gabapentin to take at night for restlessness and nerve pain. - You will be taking Aspirin 81mg twice a day for DVT prevention unless instructed otherwise. - You have also been prescribed Decadron to take to control post-operative nausea and pain. You will start this tomorrow. - If you have constipation you should take Colace or Miralax (both [id number]). It takes most people 3-4 days to have a bowel movement. Follow-up: 2 weeks If you have any acute concerns or questions, please do not hesitate to contact the office at [phone]. You may contact Dr. Leon with any questions after hours through the hospital at [phone] or on his cell phone at [phone]. Referrals: Maxi Leon MD [ [facility] STAFF PHYSICIAN] - Equipment/Supplies: Walker Activity:: Activity as Tolerated Shower/Bathe:: 72 hours Diet:: As Tolerated Discharge Orders Discharge Orders: Discharge Order (Routine); Ordered 11/05/24 Ordered By: Berhane Cornell DS: Diagnosis Discharge Diagnosis (1) Osteoarthritis of right knee: Status: Acute
[2024-11-05 10:10] VITALS: BP 233/83; PULSE 60; RESP 16; TEMP 36.3; O2SAT 99
[2024-11-05] MEDS: Gabapentin 300 MG CAP PO (10:35)
[2024-11-05] MEDS: Celecoxib 200 MG CAP 400 MG PO (10:35)
[2024-11-05] MEDS: Acetaminophen 500 MG TAB 1000 MG PO (10:36)
[2024-11-05 10:57] VITALS: BP 212/63
[2024-11-05] MEDS: Lactated Ringers 1,000 ML 80 ML IV (10:58)
--- NOTE | 2024-11-05 11:48 | ANES_ITS ---
Date of service: 11/05/24 Time of Service: 11:20 Anesthesia Note Report Anesthesia Note: Met patient in [facility] to discuss elevated blood pressure reading upon presentation for elective surgery. Reviewed historical data in [facility] going back to 07/2024 with elevated readings. Patient reports she took her daily metoprolol dose this am. Discussed with patient varying levels of uncontrolled hypertension readings in the office versus primary care. Patient does not take blood pressure readings at home and is unsure of her average range. Discussed increased anesthetic risks with poorly controlled hypertension. Plan to postpone elective surgery today and reach out to primary care to further evaluate blood pressure control and potentially have a blood pressure readings log to track baseline. Dr. Leon aware with the plan. Reviewed plan with patient and who verbalized understanding.
--- NOTE | 2024-11-05 12:15 | DSU.FORM ---
Surgery cancelled d/t uncontrolled HTN. IV removed. All belongings returned to patient.
--- NOTE | 2024-11-05 14:17 | PT.INNT ---
PT Notes Visit Reasons: R TKR Patient's surgery cancelled per Dr. Leon.
== END 2024-11-05 09:45 | disposition home or self-care (01) ==
LOC: SUR 09:44
PROVIDERS: PCP Nurse Practitioner Family; Visit Provider Student in an Organized Health Care Education/Training Program
DX: Z53.21 Procedure and treatment not carried out due to patient leaving prior to being seen by health care provider (principal); I10 Essential (primary) hypertension

== ENCOUNTER 2024-11-19 06:02 | Day surgery (SDC) | payer BC, SELFPAY ==
[2024-11-19] VITALS (27 sets, daily range): BP systolic 119–195; BP diastolic 55–109; PULSE 52–73; RESP 7–19; TEMP 36.1–36.7; O2SAT 87–100; BMI 35.5
--- NOTE | 2024-11-19 06:30 | ANES.PREOP_ITS ---
General Info Date of Service Date Performed: 11/19/24 Height: 5 ft 4 in Weight: 93.9 kg Body Mass Index (BMI): 35.5 Surgical Procedure: Operation Date: 11/19/24 07:40 Proposed Procedure Side Surgeon p Knee Total Arthroplasty w/OrthAlign Right Maxi Leon MD Meds Allergies and Home Medications Allergies Allergy/AdvReac Type Severity Reaction Status Date / Time penicillin G Allergy Unknown HIVES A Verified 11/19/24 06:25 CHILD Home Medication ?Medication ?Instructions ?Recorded multivitamin (Daily Multi-Vitamin 1 ea PO DAILY 04/20/17 tablet) metoprolol succinate 25 mg 25 mg PO DAILY 07/18/24 tablet,extended release 24 hr amlodipine 2.5 mg tablet 2.5 mg PO DAILY Hypertension 11/18/24 Current Visit Medications: Current Medications Generic Name Dose Route Start Last Admin Trade Name Freq PRN Reason Stop Dose Admin Acetaminophen 1,000 mg 11/19/24 06:00 Acetaminophen 500 Mg Tab PO 11/19/24 23:59 PREOP RIMA Celecoxib 400 mg 11/19/24 06:00 Celecoxib 200 Mg Cap PO 11/19/24 23:59 PREOP RIMA Gabapentin 300 mg 11/19/24 06:00 Gabapentin 300 Mg Cap PO 11/19/24 23:59 PREOP RIMA Ringer's Solution 1,000 mls @ 80 mls/hr 11/19/24 06:00 IV 11/19/24 23:59 INFUSION RIMA Tranexamic Acid/Sodium Chloride 1,000 mg in 100 mls @ 600 mls/hr 11/19/24 06:00 IVPB 11/19/24 23:59 PREOP RIMA Cefazolin Sodium/Dextrose 2 gm in 50 mls @ 100 mls/hr 11/19/24 06:15 Ancef Duplex IVPB 12/19/24 06:14 PREOP RIMA IV Miscellaneous Supplies 1 each 11/19/24 06:00 Iv Access IV 11/19/24 23:59 DIRECTED RIMA Sodium Chloride 0 ml 11/19/24 06:00 Normal Saline Flush 10 Ml Syr IV 11/19/24 23:59 PRN PRN Sodium Chloride 0 ml 11/19/24 06:00 Normal Saline 10 Ml Vial IJ 11/19/24 23:59 DIRECTED PRN Sterile Water 0 ml 11/19/24 06:00 Water,Injection,Sterile 10 Ml Vial IJ 11/19/24 23:59 DIRECTED PRN PFSH Active Problems Active Problems: Problem Status Onset Code Closed fracture of right tibial plateau with malunion Acute S82.141P Osteoarthritis of right knee Acute M17.11 Medical History Medical History HTN (hypertension) Migraine Past history of Surgical History Surgical History , Ectopic 1999 Rx'd section 2000 and 2003 Colonoscopy - MAC (07/09/17) Appendectomy 1977 Tobacco Smoking/Tobacco Use Status: Never Passive smoking exposure: Yes Alcohol Alcohol Intake: current Alcohol intake frequency: holidays/special occasions only Substance Use Substance use: Never Substance use type: does not use Vital Signs and Lab Results Lab Results Blood Type / Crossmatch: 2 No Data to Display Complete Blood Count: 2 White Blood Count 6.75 10^3/uL (4.4-10.8) 10/24/24 09:19 Red Blood Count 4.74 10^6/uL (3.93-5.22) 10/24/24 09:19 Hemoglobin 14.0 g/dL (11.2-15.7) 10/24/24 09:19 Hematocrit 42.7 % (36.0-46.0) 10/24/24 09:19 Platelet Count 341 10^3/uL (130-400) 10/24/24 09:19 Complete Metabolic Panel: 2 Sodium 140 mmol/L (136-145) 10/24/24 09:19 Potassium 4.0 mmol/L (3.5-5.1) 10/24/24 09:19 Chloride 105 mmol/L (98-107) 10/24/24 09:19 Carbon Dioxide 28.1 mmol/L (21.0-32.0) 10/24/24 09:19 BUN 19 mg/dL (7-18) H 10/24/24 09:19 Creatinine 0.9 mg/dL (0.55-1.02) 10/24/24 09:19 Est GFR (CKD-EPI 2020) 73.19 (mL/min/1.73m2) 10/24/24 09:19 Calcium 9.6 mg/dL (8.5-10.1) 10/24/24 09:19 Glucose 99 mg/dL (74-106) 10/24/24 09:19 Liver Function Panel: 2 No Data to Display Coagulation Panel: 2 No Data to Display Cardiac Panel: 2 No Data to Display Arterial Blood Gas: 2 No Data to Display Venous Blood Gas: 2 No Data to Display Pancreas Panel: 2 No Data to Display Thyroid Panel: 2 No Data to Display Infectious Disease: 2 No Data to Display Blood Cultures: 2 No Data to Display Toxicology Panel: 2 No Data to Display Anesthesia Assessment and Plan Anesthesia History Personal History: PONV (with prior ) Family History: No Family History of Anesthesia Complications Exercise Tolerance Exercise Tolerance: Metabolic Equivalents>4 Pertinent Negatives Pertinent Negatives: No Symptoms of GERD, No Major Cardiovascular Symptoms or Complaints, No Major Pulmonary Symptoms or Complaints and No History of CVA/TIA Cardiac & Pulmonary Exam Cardiac Exam: Normal S1/S2 Heart Sounds Pulmonary Exam: Clear Bilateral Breath Sounds and No cough or Cold Implantable Cardiac Device Does patient have a Pacemaker or an ICD?: No Airway Exam Known Difficult Airway: No Mallampati Class: 2 Mouth Opening: Normal (> 3cm) Thyromental Distance: Greater than 3 cm Neck Range of Motion: Full ROM Neck Circumference: Normal Teeth Condition: Normal Dentition Tooth Numberin 1. missing crown ASA Classification ASA Score: ASA 2 Emergency Case?: No NPO Status NPO Status: NPO Clears >2 hours, Solids >8 hours Anesthesia Plan Resuscitation Status: Full Code Anesthesia Technique: Spinal Anesthesia Airway Planned: Natural Airway Pain Management: Surgeon and patient request nerve block Monitors Used: Standard Monitors Preoperative Comments:: 59 YO F presenting for R TKA. Significant pMHx includes migraines and HTN. Patient was previously scheduled to have this procedure done on 11/05/24, but was cancelled d/t severe HTN (multiple readings were >200 SBP). Plan at that time was to visit PCP to get better blood pressure management. Added amlodipine 2.5 mg daily on top of metoprolol 25 mg daily. Patient has been monitoring BP, which shows effective BP control. BP this morning is still elevated (SBP ~190), however this is likely d/t anxiety. Plan to provide anxiolysis before the procedure.
[2024-11-19] MEDS: Celecoxib 200 MG CAP 400 MG PO (06:48)
[2024-11-19] MEDS: Gabapentin 300 MG CAP PO (06:48)
[2024-11-19] MEDS: Acetaminophen 500 MG TAB 1000 MG PO (06:48)
[2024-11-19] MEDS: Lactated Ringers 1,000 ML 80 ML IV (06:56)
--- NOTE | 2024-11-19 07:13 | W.PM.DSUDISC ---
Date of service: 11/19/24 Discharge Plan Disposition Patient Disposition: Home Condition: Good Discharge Details Reason For Visit: R TKR Attending Provider: Maxi Leon Primary Care Provider: Nicole Mayer Home Meds and New Rx's Prescriptions: Continued metoprolol succinate 25 mg tablet extended release 24 hr 25 mg PO DAILY multivitamin [Daily Multi-Vitamin] 1 EACH tablet 1 ea PO DAILY Patient Comments: Patient states she took this roughly one week ago amlodipine 2.5 mg tablet 2.5 mg PO DAILY Patient Comments: Started 11/13/24 Discharge Instructions Additional Instructions: Total Knee Discharge Instructions Activity: The most important activity is to walk and to work on gentle motion (both flexion and extension). You should try to take short walks a few times a day. It is important that when resting you work on keeping the knee straight. Avoid putting a pillow behind the knee as this will encourage flexion. Work on range of motion exercises as provided by Physical Therapy. - Start outpatient physical therapy within 2 weeks. - You should wear the NICHOLAS hose on both legs for 2 weeks. You may remove these at night. You may also use any compression sock in place of the NICHOLAS hose. - Utilize [employer] to review exercises, see videos on exercises and obtain basic information pertaining to your surgery and your recovery. Dressing: Remove the Devang wrap by 2 days after your surgery and put on the NICHOLAS stocking given to you from the hospital. Keep the surgical dressing (underneath the DEVANG wrap) in place for at least one week. After the first week it may be removed and replaced with light gauze and tape or nothing. The wound and dressing may get wet after 3 days but avoid soaking the dressing or otherwise it will need to be changed. Many people prefer covering the dressing with cling wrap (saran wrap) to minimize it from getting soaked. If it gets wet, just pat dry. If it starts to peel off then it will need to be changed. Medications: - You should take Tylenol and anti-inflammatory Celebrex as your primary pain control medications. If the Celebrex is too expensive or not covered, please call the office for another alternative (Advil/Ibuprofen or Naproxen/Aleve) - You have been prescribed a stronger pain medication Oxycodone for breakthrough pain, take as needed as prescribed. - You have also been prescribed a stomach acid reduction agent Pantoprozole to help reduce stomach acid and reflux. - You have been prescribed Gabapentin to take at night for restlessness and nerve pain. - You will be taking Aspirin 81mg twice a day for DVT prevention unless instructed otherwise. - You have also been prescribed Decadron to take to control post-operative nausea and pain. You will start this tomorrow. - If you have constipation you should take Colace or Miralax (both [id number]). It takes most people 3-4 days to have a bowel movement. Follow-up: 2 weeks If you have any acute concerns or questions, please do not hesitate to contact the office at [phone]. You may contact Dr. Leon with any questions after hours through the hospital at [phone] or on his cell phone at [phone]. Referrals: Maxi Leon MD [ [facility]] - Equipment/Supplies: Walker Activity:: Activity as Tolerated Shower/Bathe:: 72 hours Diet:: As Tolerated Discharge Orders Discharge Orders: Discharge Order (Routine); Ordered 11/19/24 Ordered By: Berhane Cornell DS: Diagnosis Discharge Diagnosis (1) Osteoarthritis of right knee: Status: Acute
--- NOTE | 2024-11-19 07:36 | W.ANESNERVE ---
Nerve Block Single Injection Procedure Date and Time Date Performed: 11/19/24 Procedure Start: 07:22 Location Where Procedure Performed Procedure Location: Day Surgery Unit Reason Performed: Postoperative Analgesia Requesting Provider: Maxi Leon Timeout Performed Timeout Performed: Yes Monitoring Used ECG, Blood Pressure, SpO2 and See EMR for corresponding vital signs Sterility Sterility: Hand Hygiene, Surgical Cap, Surgical Mask, Sterile Gloves, Eye Protection and Chlorhexidine Sedation Given During Procedure Sedation Given (Indicate Dose Given): Precedex IV Dose:: 8 mcg Patient Mental Status Patient Mental Status: Sedate with meaningful communication Nerve Block 1st Nerve Block: Laterality: Right Block Type: Adductor Canal Ultrasound Image Saved?: Yes Needle / Catheter Used: 120mm SonoPlex II Local Anesthetic Bolus (Indicate Dose Given): Lidocaine used for local infiltration of skin, Injected in 3-5ml increments after negative blood aspiration, Bupivacaine 0.25% Dose:: 10 ml and Exparel Dose:: 10 ml Additives (Indicate Dose Given): None Ultrasound: Sterile probe cover and gel used Nerve Stimulator: Supplement to Ultrasound use and No twitch or parasthesia noted < 0.5 mA Paresthesia: None Procedure Tolerated: No Complications and Patient tolerated well Procedure Outcome: Successful Performed By: Jimmy Paula Supervised By: Wilbert Lux
[2024-11-19] MEDS: ceFAZolin 2 GM/50 ML BAG IVPB (07:59)
[2024-11-19] MEDS: TRANEXAMIC ACID/SOD. CHL. 1,000 MG/100 ML BAG 600 MG IVPB (08:05)
[2024-11-19] MEDS: fentaNYL 100 MCG/2 ML VIAL IVP ×2 (10:01→10:21)
--- NOTE | 2024-11-19 10:48 | ROE_ITS ---
Operative Note Operative Note PRE-OP DIAGNOSIS: Right Knee Osteoarthritis POST-OP DIAGNOSIS: same Right Tibial Plateau Nonunion PROCEDURE: Right Total Knee Replacement with Intraoperative Navigation SURGEON: Maxi Leon STAND UP COMEDIAN: Ana Cornell ANESTHESIA TYPE: Spinal Refer to Anesthesia Record ESTIMATED BLOOD LOSS: 100 PATHOLOGY: none sent TOURNIQUET TIME: 0 COMPLICATIONS: None Patient was transported to: PACU Patient's condition: stable Implants: 1. Depuy Attune Cementless Cruciate Retaining Femoral Component, Size 5 Narrow 2. Depuy Attune Cementless Fixed Bearing Tibial Component, Size 3 3. Depuy Attune 5x7mm CR/FB Poly 4. Depuy Attune Patellar Component, Size 32 mm Indications: I have seen Lynda in clinic for symptoms of RIGHT knee arthritis, confirmed with radiographic findings. She has exhausted nonoperative methods and was having significant limitations in daily function and desired better function and less pain. I discussed the technical details of a knee replacement. I explained the risks of the procedure to include, but not limited to, bleeding, infection, pain, stiffness, fracture, damage to nerves and vessels, damage to muscles and tendons, loosening, need for repeat procedure, blood clot and cardiopulmonary demise. Despite these risks, Lynda elected to proceed. Findings: There was significant signs of arthritis throughout the knee. The previous tibial plateau fracture was not visible except for the deformity in the cartilage surface but when the cut was made there was an obvious patent fracture in [place] subchondral bone of the lateral tibia. Procedure Description: Lynda was greeted in the preoperative holding area where the correct side was identified and marked. The consent was reviewed with the patient and signed. The history and physical was updated. All questions were answered. Preoperative medications were administered: Acetaminophen 1000mg, Celebrex 400mg, and Gabapentin 300mg. An adductor canal block was then administered by the anesthesia team in the DSU. She was taken back to the operating room. A spinal anesthestic was then administered. The patient was placed into the supine position on the operating room table. Posts were placed for positioning during the procedure. All bony prominences were well padded. Prophylactic antibiotics in the form of Cefazolin were administered. 1g of Tranxemic Acid was given intravenously within 30 minutes of incision. The right leg was then prepped with Chloraprep and draped in a standard fashion with impervious stockinette. A second prep with Chloraprep was performed prior to application of Iodine impregnated skin protection. A timeout to confirm correct identity, side and site, procedure, allergies, anesthesia, and medical concerns was performed. With the knee in some flexion, a midline incision was made overlying the knee. Full thickness skin flaps were raised once the extensor mechanism was encountered. These were raised medially and laterally. Any bleeding was contr olled with electrocautery. Once the extensor mechanism was fully exposed, a medial parapatellar arthrotomy was performed in a flexed position. All bleeding from the arthrotomy and the geniculate arteries was coagulated. A medial subperiosteal peel was performed with electrocautery to the midcoronal plane. The fat pad was removed while keeping the patellar tendon protected. The anterior distal femur synovium was removed for later visualization. The ACL and PCL were resected and the anterior horn of the lateral meniscus was transected. The knee was then flexed with the patella everted. A single starting pin was then placed 1cm anterior to the PCL insertion and the notch in the direction of the femoral head. The OrthoAlign device was applied over the pin. It was oriented to be in line with the epicondylar axis and the trochlear groove. It was then pinned into place. The navigation computer was then turned on and calibrated. The distal femur cut was set at 0 degrees varus and 3.5 degrees flexion. The distal femur cutting guide then was positioned for a 9mm cut. The distal femur was cut with an oscillating saw while protecting the soft tissues. The tibia was then addressed. The OrthoAlign device was placed over the tibial tubercle and medial tibia and secured into position. Once again, OrthoAlign was calibrated and then set for a 1.5 degree varus cut and 5 degrees of posterior slope. With this locked into position, the cut thickness stylus was used to assess cut thickness. The lateral side, most involved side, was set for a 4mm cut. This was then held in position and pinned into place with 2 additional pins and a cross pin for stability. The medial and lateral collateral ligaments were protected and the cut was performed. With this completed, it was assessed and noted to be of appropriate dimensions. At this point it was noted that there was a fracture line in the subchondral bone of the cut tibial segment indicating that the impaction and depression fracture she had of the lateral tibial plateau had not healed. There is no extension of fracture into the remnant tibia. Then, the guide and OrthoAlign was removed. A spacer block was inserted and the knee was brought into extension to ensure enough space was present. The Orthoalign gap balancing device was then placed in extension. This was used to ensure that the ligaments were properly balanced with up to 2 to 3 mm laxity laterally compared medially. The extension gap was measured as 18mm. The knee was then brought into 90 degrees of flexion and the ligament home coordinator was once again placed. Under the same amount of force the flexion gap was measured. The Attune specific jig was placed and the flexion gap was made to match the extension gap. The femur was then sized as a size 5 Narrow. The 4-in-1 cutting guide was the placed. An abbey wing was used to confirm appropriate position of the anterior cut to avoid notching. This cutting guide was ensured to be flush on the cut surface and then pinned into place with headed pins. While protecting the soft tissues, quad tendon, and collateral ligaments, the anterior and posterior cuts were performed with a saw. The central two pins were removed and the posterior and anterior chamfers were cut next. The notch-cutting guide was placed. This was pinned to lateralize the femoral component as much as possible while keeping it flush on the cut surface. This was then pinned into position. A saw was used to make the notch cut. A rasp smoothed the cut surfaces. The medial and lateral menisci were removed. A trial femoral component was then inserted, impacted down to the cut surfaces, and the lug holes were drilled. A provisional trial tibial component was placed and the knee was brought through range of motion. The polyethylene was trialed until there was good flexion and extension with excellent stability to the medial and lateral collaterals. The patella was tracking without thumbs. A size 7mm polyethylene component provided the best range of motion and stability with less than 2mm gapping with medial and lateral stress and full extension without significant hyperextension. The tibial cut surface was fully exposed. The tibia was then sized as a 3. The tibia had been previously marked during trialing to correspond to the center of the tibial component to help with rotation. The trial was aligned to this ana, approximately rotated to the medial 1/3rd of the tibial tubercle. The trial was pinned into place. The tibia was prepared with a reamer and a keel punch and lug holes. The knee was then brought into extension and the patella was measured as 20mm. Using the patellar clamp and cut guide, this was resected to a flat surface with at least 13mm of thickness remaining. The size 32 patella fit the best. This was oriented and then clamped into position. The lugs were drilled. The trial components were removed. The final components were opened on the back table. The periosteal and capsular tissues, especially posteriorly, around the knee were then systematically injected with a periarticular cocktail consisting of 246mg of Ropivacaine, 0.5mg of Epinephrine, 0.08mg of Clonidine, and 30mg of Ketorolac, diluted to 100cc. On the back table, with the implants opened, the cement was mixed. One batch of high viscosity cement was prepared with vacuum assistance. After the cement was ready a small amount was placed on the cut surface of the patella and the patellar button was clamped into position and held. Then, the knee components were placed. Starting with the tibial component, the tibia was subluxed anteriorly and the lug holes of the component were lined up. The tibia was then impacted with an impactor and mallet until the tibial component was in contact with the tibia. Then, the femoral component was inserted. The lug holes were aligned and the component was impacted into position. The final polyethylene component was inserted. The knee was irrigated with Surgiphor Betadine solution. This was allowed to sit in the knee for 3 minutes and then it was thoroughly irrigated out with saline. After the cement had finally cured, approximately 15min, the clamp was removed from the patella. The knee was then taken through range of motion. The patella was tracking with a no-thumbs technique. A complete synovectomy of the patella was performed. Any prominence to the lateral facet was resected with a rongeur. The capsule was then reapproximated with a No. 1 Vicryl at multiple locations. The capsule was finally closed with a No. 2 Stratafix, barbed suture. Deep tissues were then reapproximated with 0 Vicryl and 2-0 Vicryl. The skin was closed with a running 3-0 Monocryl in a subcuticular fashion. This was reinfo rced with skin glue. A Mepilex silver dressing was applied along with a [id number] REMY wrap. A CryoCuff was applied. Lynda was transferred to the hospital bed without difficulty an suffering no apparent complication. She has a good prognosis. Physical therapy will start today and without restrictions, weight-bearing as tolerated. Aspirin 81mg BID will be used for DVT prophylaxis. Date of Procedure: 11/19/24
[2024-11-19] MEDS: oxyCODONE 5 MG TAB PO (10:51)
--- NOTE | 2024-11-19 12:13 | W.ANESPOSTOP ---
Postoperative Evaluation Date, Time and Location Date Performed: 11/19/24 Time Performed: 12:13 Patient Location: Day Surgery Unit Vital Signs Most Recent Imported Vital Signs: Most Recent Vital Signs Temp Pulse Resp BP Pulse Ox 36.1 C L 64 16 128/74 98 11/19/24 11:31 11/19/24 11:31 11/19/24 11:31 11/19/24 11:31 11/19/24 11:31 Pain Score Most Recent Pain Score: Most Recent Pain Score Pain Level 4 11/19/24 11:31 Assessment Mental Status: Awake (Alert & Oriented to Patient Baseline) Airway and Respiratory Function: Patent airway with normal (patient baseline) respiratory exam Cardiovascular Function: Hemodynamically Stable Hydration Status: Adequately Hydrated Nausea & Vomiting: No Nausea or Vomiting Pain: Pain is tolerable per patient Peripheral Nerve Block: Regional nerve block not resolved at time of post operative discharge
--- NOTE | 2024-11-19 13:32 | PT.INIE ---
PT Notes Visit Reasons: R TKR Physical Therapy Day Surgery Initial Evaluation Date: 11/19/2024 Referring Doctor: Berhane HIGH, Dr Leon PT Orders: PT CONSULT: s/p Ortho surgery Precautions: WBAT RLE Patient Profile/Admitting Diagnosis: Pt is a 59 yo female presenting s/p elective R TKA . Pt post op uncomplicated. 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 Pt has 5 COLLIN through the garage. 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 . Pt independent with ambulation , drives, ADLS , financial, meal prep. Equipment Owned/DME: FWW, crutches Subjective: Pt reports she feels tired. Pt reports she has prepared meals for the next week. She notes she will be using a sectional sofa when not in bed . Objective: [] General Observation: female semireclined on stretcher with cryocuff to right knee, nurse and present. Mental Status: A+Ox4, cooperative, able to follow all instructions, agreeable to participate in assessment Pain: right knee 3/10 ROM: [] BUE : WNL Right Lower Extremity: hip and ankle WNL knee 0-90 degrees Left Lower Extremity: WNL Strength: [] BUE: 5/5 Right Lower Extremity: Hip flexion: 3- /5; hip abduction:3- /5; hip extension: 3- /5; knee extension: 3 /5; knee flexion: 2+ /5 ankle DF: 3 /5 ; ankle PF: 3 /5 Left Lower Extremity:5/5 Sensation: intact pain and touch Bed Mobility/Transfers: [] Supine to sit Supervision Sit to stand SBA cues for hands Stand to sit SBA cues for hands Bed to chair SBA with FWW Gait: amb with FWW CGA progressed to SBA 140 feet with step to pattern reduced right knee flexion during swing phase , circumduction for foot clearance Stairs: 5 steps with rail and Device CGA and cues for sequencing x 2 trials Balance: [] Static Sitting:Normal Dynamic Sitting: Good Static Standing:Good Dynamic Standing: Fair + Special Tests: [] Mobility Limitations Standardized Measure [] [facility] AM-PAC 6 clicks Basic Mobility Inpatient Short Form: [] Raw Score: 22 CMS Score: 20.91% Informed Consent/Education: Patient instructed in purpose of PT consult. Treatment: [id number]: Packet containing TKA exercise protocol has been given to patient. Education and training on initial set of 10 reps of exercises that can be done at home have been completed with patient. Pt and educated on transfer into truck with running board Assessment: Patient is a 59 yo female who presents with clinical signs and symptoms consistent with current/admitting diagnoses that have resulted to mobility limitations, gait instability, generalized weakness, and impairment of motor control as demonstrated by the following impairment level findings: 1. Decreased strength to right knee major muscle groups 2. Impaired standing balance 3. Limitation of joint range of motion in right knee 4. pain right knee 5. Impaired functional activity tolerance Impairments are contributing to the following functional limitations: 1. Inability to safely ambulate without assistive device 2. Increase completion time for mobility ADL performance 3. Increased fall risk 4. difficulty performing stairs without assistance and assistive device Patient is assessed as a lowcomplexity based on the following: History: 59-year-old female with impairment level findings, functional limitations, and past medical history as indicated above Examination: Demonstrable impairment in strength, balance, and mobility level with underlying impairments and functional limitations as documented above Presentation: stable Decision Making:low Goals: N/A. PT evaluation and 1-2 treatment sessions only for functional mobility training using recommended AD and for HEP instruction. Plan of Care/Treatment Plan: N/A. PT evaluation and 1-2 treatment session only for functional mobility training using recommended AD and for HEP instruction. DISCHARGE RECOMMENDATIONS:Home with HEP and Outpatient PT as scheduled. TREATMENT CODE/TIME:[id number], [id number]/ [id number] Thank you for the opportunity to participate in the care of this patient. Shonda Ortega, PT [facility]
== END 2024-11-19 13:50 | disposition home or self-care (01) ==
PROVIDERS: PCP Nurse Practitioner Family; Visit Provider Student in an Organized Health Care Education/Training Program
PROC: (CPT 27447; principal; 2024-11-19 07:30)
DX: M17.11 Unilateral primary osteoarthritis, right knee (principal); I10 Essential (primary) hypertension; G89.18 Other acute postprocedural pain
CPT/HCPCS: 27447; 20985; 64447; 97110; 97161; C1776; J0665; J0666; J0690; J1100; J2003; J2250; J2371; J2401; J2405; J2704; J3010

== ENCOUNTER 2024-12-01 14:46 | Outpatient (CLI) | payer BC, SELFPAY ==
--- NOTE | 2024-12-01 14:37 | DI.RAD_ITS ---
Exam(s) XR KNEE RT 1V XR STANDING ALIGNMENT EXAM: XR STANDING ALIGNMENT and XR knee RT 1 V CLINICAL HISTORY: 1ST POST OP R TKA. TECHNIQUE: 2D digital imaging was performed. Five images were obtained. COMPARISON: CR XR KNEE RT 4V AP,LAT,MAGDIEL,PAT from 07/18/2024 CR XR STANDING ALIGNMENT from 10/24/2024 FINDINGS: BONES: The hips are well maintained. Since the prior examination, there has been placement of a right total knee arthroplasty. The orthopedic hardware is in appropriate position. In the left knee there is marked narrowing of the medial femoral tibial joint. Osteophytes are seen both medially and laterally. The ankles are well maintained.There is no significant leg length discrepancy. SOFT TISSUE: Normal. IMPRESSION: 1. Interval placement of a right total knee arthroplasty. 2. Marked degenerative changes seen in the left knee. DATA REPOSITORY: RADIATION DOSE DELIVERED:
== END 2024-12-01 14:47 | disposition home or self-care (01) ==
LOC: DIORS 14:46
PROVIDERS: PCP Nurse Practitioner Family; Referring Provider Nurse Practitioner Family; Visit Provider Student in an Organized Health Care Education/Training Program
DX: Z96.651 Presence of right artificial knee joint (principal)
CPT/HCPCS: 73560; 77073

== ENCOUNTER 2025-04-28 10:09 | Outpatient (REF) | payer BC, SELFPAY ==
[2025-04-28 16:25] LABS: Glucose Negative (Negative)
[2025-04-28 16:42] LABS: C & S Indicated? No; RBC Negative HPF (0-2)
== END 2025-04-28 10:10 | disposition home or self-care (01) ==
LOC: NCHCN 10:09
PROVIDERS: PCP Nurse Practitioner Family; Visit Provider Nurse Practitioner Family
DX: I10 Essential (primary) hypertension (principal)
CPT/HCPCS: 81003; 81015; 82043; 82570